=== PATIENT | male | born 1985 | race African-American/Black ===

== ENCOUNTER 2017-10-28 12:51 | Observation (INO) | payer SELFPAY ==
--- NOTE | 2017-10-28 14:49 | RAD ---
PORTABLE CHEST: History: Chest pain. FINDINGS: Lungs are clear. Heart and mediastinum are unremarkable. IMPRESSION: No acute finding. POS: [facility]
[2017-10-28 15:25] LABS: Troponin I Less than 0.010 ng/mL (< 0.028)
[2017-10-28 15:55] LABS: #Basophils 0.1 thou/uL (0.0-0.2); #Eosinphils 0.4 thou/uL (0.0-0.7); #Lymphocytes 1.7 thou/uL (1.20-3.40); #Monocytes 0.8 thou/uL (0.11-0.59); #Neutrophils 3.7 thou/uL (1.40-6.50); %Basophils 1.5 % (0.0-1.0); %Eosinophils 5.6 % (0.0-10.0); %Monocytes 11.4 % (0.0-10.0); Hematocrit 44.6 % (42.0-52.0); Mean Platelet Volume 6.6 fL (7.4-10.4); Red Blood Cell (RBC) Count 5.08 mill/uL (4.70-6.10); White Blood Cell (WBC) Count 6.7 thou/uL (4.8-10.8)
[2017-10-28 16:07] LABS: ALT (SGPT) 47 U/L (8-55); AST (SGOT) 28 U/L (5-34); Alkaline Phosphatase 92 U/L (40-150); Anion Gap 10 mmol/L (10-20); BUN (Urea Nitrogen) 14 mg/dL (8.9-20.6); Bilirubin, Total 0.7 mg/dL (0.2-1.2); Calc. Creatinine Clearance 0 mL/min (70-130); Calcium 9.8 mg/dL (7.8-10.44); Carbon Dioxide 30 mmol/L (22-29); Chloride 104 mmol/L (98-107); Estimated GFR-MDRD Greater than 90; Globulin 2.8 g/dL (2.4-3.5)
[2017-10-28] MEDS ORDERED: Nitroglycerin 0.4 MG TAB (25 Tab Bottle) ONE (16:34)
[2017-10-28 18:26] VITALS: BMI 31.4
[2017-10-28] MEDS ORDERED: Ibuprofen 800 MG TAB PO PRN (18:29)
[2017-10-28 18:31] LABS: Troponin I 0.011 ng/mL (< 0.028)
[2017-10-28] MEDS ORDERED: Acetaminophen 325 MG TAB PO PRN (18:58)
[2017-10-28] MEDS ORDERED: Bisacodyl 5 MG TAB PO PRN (18:58)
[2017-10-28] MEDS ORDERED: Ondansetron ODT 4 MG TAB PO PRN (18:58)
[2017-10-28] MEDS ORDERED: Ondansetron HCl/PF 4 MG/2 ML Vial IVP PRN (18:58)
[2017-10-28] MEDS ORDERED: Nitroglycerin 0.4 MG TAB (25 Tab Bottle) PO PRN (18:58)
[2017-10-28] MEDS ORDERED: Lidocaine 2% Viscous Solution 10 ML, Aluminum & Magnesium Hydroxide 30 ML SSW SCH ×2 (19:30)
[2017-10-28] MEDS: Sodium Chloride 0.9% 1,000 ML IV SCH (20:32)
[2017-10-28 21:30] LABS: Troponin I 0.021 ng/mL (< 0.028)
[2017-10-29] MEDS: Sodium Chloride 0.9% 1,000 ML IV SCH (02:23)
--- NOTE | 2017-10-29 03:56 | HP ---
PRIMARY CARE PHYSICIAN: Radha koch. CHIEF COMPLAINT: Chest pain. HISTORY OF PRESENT ILLNESS: This is a 31-year-old -[place]ir[place] male with a past medical history significant only for asthma without recent problems. 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 When he woke up, he had left-side d chest pain. This pain was present for few hours and slowly eased off; however, it flared back up a gain after eating. The pain has been going on and off for the last week and a half now. He does not notices much when he is driving, but it gets severely worse if he eats, especially if he eats someth ing fatty. The pain is in the left side of his chest up and underneath his armpit and around to the front lower part of the chest as well. It is a sharp pain shoots through to the back. It does not s eem to be worse with deep breaths or with coughing, but is a little bit exacerbated by lifting his ar m up over his head, he feels like it stretches it and sometimes if he is laughing, it will hurt more worse. The pain got significantly worse today after eating lunch and so he came into the hospital fo r evaluation. In the ER, he had negative cardiac markers. He had a chest x-ray with some changes co nsistent with pulmonary disease pattern. They have not tried any medications from the ER, but were c oncerned about the risk of possible heart issue and so are putting him on observation in the hospital . The patient has had a negative D-dimer and negative lipase done here as well. PAST MEDICAL HISTORY: None. PAST SURGICAL HISTORY: Right hand surgery. SOCIAL HISTORY: The patient previously smoked for about 5-6 pack years, but quit several years ago. He drinks 1-2 beers rarely. No drug use. Works as a professional driver. FAMILY HISTORY: Diabetes and hypertension in the family. No early heart disease in the family. ALLERGIES: He thinks he may be allergic to ASPIRIN, though he was told just by his parents. He does not remember ever having a reaction to it and he is allergic to PENICILLIN. He also gets asthma exa cerbations if he eats any sort of seafood. CURRENT MEDICATIONS: Ibuprofen as needed for pain. He has been taking a very high dose of this abou t 400 mg every 2-3 hours regularly for the last week with some improvement in the pain after he takes it. REVIEW OF SYSTEMS: Constitutional: No fevers, no chills, no weight changes. Eyes: No double visio n or blurred vision. ENT: No congestion, drainage or sore throat. Cardiovascular: See HPI. No pa lpitations or racing heart. Pulmonary: No coughing, wheezing or shortness of breath. Gastrointesti nal: No abdominal pain, no nausea or vomiting. No diarrhea or constipation. Genitourinary: No dys uria or hematuria. Musculoskeletal: No muscle aches or joint pains besides the chest wall pain that he has described on admission. Skin: No rashes or other lesions noted. Neurologic: No numbness, tingling or focal weakness. PHYSICAL EXAMINATION: VITAL SIGNS: Blood pressure 131/86, pulse 65, respirations 16, O2 sat 98% on room air and temperatur e 97.9. GENERAL: This is a well-developed, well-nourished -Emirati male in no apparent distress. HEENT: Pupils are equal, round and reactive to light. Oropharynx is clear without lesions, erythema or exudate. NECK: Supple. No lymphadenopathy, no thyroid nodules or enlargement. No JVD. HEART: Regular rate and rhythm. No murmurs, rubs or gallops. LUNGS: Clear to auscultation bilaterally. No wheezes, crackles or rhonchi. No chest wall tendernes s. ABDOMEN: Soft, nontender to palpation, normoactive bowel sounds. No hepatosplenomegaly or other mas ses. EXTREMITIES: No clubbing, cyanosis or edema. SKIN: No rashes or other lesions noted. NEUROLOGIC: Cranial nerves intact and equal bilaterally. No facial droop. Deep tendon reflexes are 2+ in all extremities, 5/5 strength in all extremities. PSYCHIATRIC: Alert and oriented x3, normal mood and affect, intact insight and judgment. LABORATORY AND IMAGING DATA: CBC within normal limits. D-dimer is negative. Complete metabolic ulloa el was within normal limits except for carbon dioxide, it is a little high at 30. His creatinine kin ase was elevated at 291. CK-MB and troponin were negative and his lipase was 31. EKG: I did review the EKG done in the emergency room. It does show an RSR pattern in V1. This is consistent with an early pulmonary disease pattern, possibly from his asthma or smoking. No evidence of ST segment strickland ges. No evidence of Q-waves or anything else suspicious for coronary syndrome. Chest x-ray: I did review the chest x-ray done in the emergency room along with the radiologist's report. There is no e vidence of acute cardiopulmonary process. ASSESSMENT AND PLAN: 1. Chest pain, atypical. The differential in this chest pain is wide. It does not appear to be car diac, although he does have a history of smoking, which could increase his chances of having a cardia c etiology. We will go ahead and try a dose of nitroglycerin on him down in the emergency room, whjohn h they have not done yet. We cannot give him aspirin due to possible ASPIRIN allergy. We will obser ve the patient in the hospital with serial troponins and if those are negative, we will get a stress test on him. He is physically able and can do the exercise stress test. The other possible etiologi es of this would be musculoskeletal, which is very likely given the worsening of pain when he last wa s in the room and when he moves his arm. We will continue nonsteroidal anti-inflammatory drugs that are more safe dose here in the hospital and then gastrointestinal was also high on the differential, especially with this worsening after eating, especially fatty foods. It is falling on the wrong side of the body to be a gallbladder issue and he has a negative lipase, but we will go ahead and put him on a proton pump inhibitor in case there is a gastritis or ulcer issue with this pain. We will also try a GI cocktail at this time to see if that really eases his pain at all. 2. History of asthma, currently on no medications. We will avoid instigating medications and any se afood. 3. Gastrointestinal prophylaxis. Put the patient on Protonix. 4. Deep venous thrombosis prophylaxis. We will have patient ambulate frequently and if he does need to be in the hospital longer than just overnight, we can put sequential compression devices and TEDs on him instead of giving him Lovenox. 5. Previous smoker. 6. CODE STATUS: The patient is a FULL CODE. Should he be incapacitated, he states that his brother will help to make medical decisions for him. His brother's name is Nigel Dale.
[2017-10-29 05:26] LABS: #Basophils 0.1 thou/uL (0.0-0.2); #Eosinphils 0.4 thou/uL (0.0-0.7); #Lymphocytes 1.5 thou/uL (1.20-3.40); #Monocytes 0.8 thou/uL (0.11-0.59); #Neutrophils 3.3 thou/uL (1.40-6.50); %Basophils 0.8 % (0.0-1.0); %Eosinophils 6.8 % (0.0-10.0); %Lymphocytes 23.9 % (21.0-51.0); %Monocytes 13.3 % (0.0-10.0); Hematocrit 45.6 % (42.0-52.0); Mean Platelet Volume 6.7 fL (7.4-10.4); Red Blood Cell (RBC) Count 5.19 mill/uL (4.70-6.10); White Blood Cell (WBC) Count 6.1 thou/uL (4.8-10.8)
[2017-10-29 05:41] LABS: Anion Gap 8 mmol/L (10-20); BUN (Urea Nitrogen) 13 mg/dL (8.9-20.6); Calc. Creatinine Clearance 175 mL/min (70-130); Calcium 9.2 mg/dL (7.8-10.44); Carbon Dioxide 29 mmol/L (22-29); Chloride 104 mmol/L (98-107); Cholesterol 190 mg/dl (< 200 Desired); Estimated GFR-MDRD Greater than 90; LDL Cholesterol, Calculated 119 mg/dL
--- NOTE | 2017-10-29 07:37 | PDOC.PN ---
- Subjective Encounter Start Date: 10/29/17 Encounter Start Time: 12:30 Subjective: Chest pain resolved overnight. Started back a little bit right before -: starting lunch, not bad right now. - Objective Resuscitation Status: Resuscitation Status FULL:Full Resuscitation MAR Reviewed: Yes Vital Signs & Weight: Vital Signs (12 hours) Temp Pulse Resp BP BP BP Pulse Ox 10/29/17 04:23 99.2 F 73 16 134/73 95 10/28/17 23:56 99.3 F 72 16 136/76 96 10/28/17 20:31 98.5 F 70 16 10/28/17 19:38 98.5 F 70 16 127/83 98 Weight Weight 231 lb 9.6 oz I&O: 10/28/17 10/29/17 10/30/17 06:59 06:59 06:59 Intake Total 480 Balance 480 Result Diagrams: 10/29/17 04:52 10/29/17 04:52 Phys Exam - Physical Examination Constitutional: NAD HEENT: moist MMs Respiratory: no wheezing, no rales, no rhonchi, clear to auscultation bilateral Cardiovascular: RRR, no significant murmur Gastrointestinal: soft, non-tender, positive bowel sounds Neurological: non-focal, moves all 4 limbs Psychiatric: normal affect, A&O x 3 Dx/Plan (1) Chest pain, atypical Code(s): R07.89 - OTHER CHEST PAIN Status: Acute (2) Asthma Code(s): J45.909 - UNSPECIFIED ASTHMA, UNCOMPLICATED Status: Chronic Qualifiers: Asthma severity: mild Asthma persistence: intermittent - Plan cont current plan of care Stress test with anterior fixed defect. Given patient's age, lack of risk -: factors, normal wall motion and EF, this is most likely chest/breast -: shadowing. Will treat with PPI, Tylenol and Ibuprofen for pain. F/u -: with PCP in 1-2 weeks if pain not resolved. * . - Discharge Day Encounter end time: 12:50
[2017-10-29 12:32] VITALS: BP 133/69; TEMP 98.9
--- NOTE | 2017-10-29 14:00 | NM ---
NUCLEAR MEDICINE CARDIAC STRESS WITH EJECTION FRACTION AND WALL MOTION: HISTORY: Chest pain. COMPARISON: None. TECHNIQUE: The patient was administered 10.3 mCi of technetium-99m sestamibi for rest imaging and 31 mCi of tech netium-99m sestamibi for stress imaging. Cardiac gating is performed. FINDINGS: Small fixed defect in the anterior myocardium, likely representing area of scarring in the mid portio n of the anterior myocardium. No reversibility. TID is 0.94. End-diastolic volume is 158 mL. End-systolic volume is 68 mL. CARDIAC GATING: Normal motion and thickening. Ejection fraction is 57%. IMPRESSION: 1. Small fixed defect in the mid anterior left ventricle. 2. No evidence of reversibility. 3. Ejection fraction is 57%. POS: [facility]
--- NOTE | 2017-10-29 22:43 | DIS ---
PRIMARY CARE PHYSICIAN: None. DIAGNOSES ON ADMISSION: 1. Chest pain, atypical. 2. History of asthma. 3. Previous smoker. DIAGNOSES ON DISCHARGE: 1. Atypical chest pain, not cardiac. 2. History of asthma. 3. Previous smoker. CONSULTATIONS: None. PROCEDURES: Nuclear medicine stress test showing ejection fraction of 55%, normal wall motion, no re versible defects, but there is an anterior defect over the left ventricle, it is fixed. PERTINENT LABORATORY: Cardiac markers negative x3. Negative D-dimer. Fasting cholesterol 190, LDL 119, HDL 55, triglycerides 79. 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 The patient had been taking large doses of ibuprofen for this with moderate impro vement in the pain. He came to the ER. In the ER, he had a negative cardiac workup. His EKG did sh ow some mild pulmonary disease pattern changes, but no evidence of ischemic disease. The patient was put in the hospital, he did not have any response to nitroglycerin. He did have a GI cocktail. Omkar costa, his pain resolved and did not get it again until the second hospital day. The patient did ratliff ve a nuclear medicine stress test with the above results. He did have a fixed defect on the stress t est, but given his lack of predisposing conditions like family history of heart disease or diabetes o r high blood pressure, current smoking, this is most likely breast attenuation. He does have large a mount of tissue on the anterior chest. The differential for this pain is most likely either gastriti s versus musculoskeletal pain. We will put him on Tylenol for the pain 1000 mg 4 times a day and he can take some ibuprofen on top of this, but for protecting his stomach, we will add Protonix 40 mg da kirit for the next month. The patient is to follow up with primary care physician in 1 week. DISCHARGE MANAGEMENT: Discharged home. Follow up with primary care physician in 1 week. ACTIVITY: As tolerated. DIET: Regular diet. DISCHARGE MEDICATIONS: 1. Protonix 40 mg daily, 30 tablets dispensed. 2. Acetaminophen [id number] as needed for pain. 3. Ibuprofen [id number] as needed for pain.
--- NOTE | 2017-11-03 12:50 | STRESS ---
Acquisition Time: 2017-10-29 10:17:32 Total Exercise Time: 00:10:11 Test Indications: CHEST PAIN Medications: Protocol: FREDERICK Max HR: 164 BPM 87% of Pred: 187 BPM Max BP: 152/090 mmHG Max Work Load: 12.7 METS RESTING ECG: NORMAL SINUS RHYTHM AT 71 BPM SYMPTOMS: NONE NORMAL BLOOD PRESSURE RESPONSE ECTOPY: NONE ECG STRESS: NO SIGNIFICANT CHANGES INTERPRETATION: NEGATIVE EXERCISE TREADMILL TEST/ECG. AWAIT NUCLEAR IMAGES FOR DEFINITIVE DIAGNOSIS Confirmed by DR. Vamsi HOROWITZ ([id number]), editor dictionary UMBERTO AGUILAR ([id number]) on 11/03/2017 12:49:10 PM Referred By: Mariaelena NUNO Confirmed By:DR. Vamsi HOROWITZ
--- NOTE | 2017-12-01 13:27 | EKG ---
Test Reason : Blood Pressure : / mmHG Vent. Rate : 077 BPM Atrial Rate : 077 BPM P-R Int : 166 ms QRS Dur : 100 ms QT Int : 392 ms P-R-T Axes : 045 055 072 degrees QTc Int : 443 ms Normal sinus rhythm Possible Left atrial enlargement RSR' or QR pattern in V1 suggests right ventricular conduction delay Nonspecific T wave abnormality Abnormal ECG Confirmed by FELICIA AHUJA DO ([id number]), editorial intern RODOLFO DELVALLE ([id number]) on 12/01/2017 1:27:16 PM Referred By: Confirmed By:FELICIA AHUJA DO
== END 2017-10-29 14:43 | disposition home or self-care (01) ==
LOC: ERS 12:51 → 2SW 17:46
PROVIDERS: ADMIT Emergency Medicine; ATTEND Emergency Medicine
DX: R07.89 Other chest pain (principal); J45.909 Unspecified asthma, uncomplicated; F17.210 Nicotine dependence, cigarettes, uncomplicated; Z88.0 Allergy status to penicillin; Z88.8 Allergy status to other drugs, medicaments and biological substances; Z79.899 Other long term (current) drug therapy; Z98.890 Other specified postprocedural states
CPT/HCPCS: 36415; 71010; 78452; 80048; 80053; 80061; 82553; 83690; 84484; 85025; 85379; 93005; 93017; A9500; G0378